=== PATIENT | female | born 1995 | race Caucasian/White ===

== ENCOUNTER 2019-04-20 13:19 | Emergency (ER) | payer OTHER ==
[2019-04-20] MEDS ORDERED: MAG HYDROX/AL HYDROX/SIMETH SUSP 30 ML UDCUP PO ONE (13:55)
[2019-04-20] MEDS ORDERED: METOCLOPRAMIDE HCL ORAL SOLN 10 MG/10 ML UDCUP PO ONE (13:55)
[2019-04-20] MEDS ORDERED: LIDOCAINE 2% VISCOUS SOLN 20 ML UDCUP PO ONE (13:55)
--- NOTE | 2019-04-20 13:57 | ER Document Report ---
ED Medical Screen (RME) - General Chief Complaint: Chest Pain Stated Complaint: CHEST PAIN Time Seen by Provider: 04/20/19 13:44 Notes: Patient is a 24-year-old female presents emergency department with a chief complaint of chest pain. She has had her pain for about the past 2 weeks. Describes it as an intermittent stabbing pain patient states that mother had a stress heart attack when she was 34 years old. Patient is a current everyday smoker and smokes about 3 to 4 cigarettes a day. Today the patient got lightheaded and dizzy and was brought to the emergency department by her coworkers. Patient has a history of GERD and she is supposed to be taking omeprazole, but has not been taking it because she does not like to take medications. Exam: S1, S2. Patient will be given GI cocktail to see if this helps with her chest pain. I have greeted and performed a rapid initial assessment of this patient. A comprehensive ED assessment and evaluation of the patient, analysis of test results and completion of medical decision making process will be conducted by an additional ED providers. - Related Data Allergies/Adverse Reactions: No Known Allergies Allergy (Verified 04/20/19 13:41) Past Medical History - Social History Drug Abuse: Marijuana Physical Exam - Vital signs Vitals: Temp Pulse Resp BP Pulse Ox 98.2 F 86 18 137/79 H 99 04/20/19 13:33 04/20/19 13:33 04/20/19 13:33 04/20/19 13:33 04/20/19 13:33 Course - Vital Signs Vital signs: Temp Pulse Resp BP Pulse Ox 98.2 F 86 18 137/79 H 99 04/20/19 13:33 04/20/19 13:33 04/20/19 13:33 04/20/19 13:33 04/20/19 13:33
[2019-04-20] MEDS ORDERED: ASPIRIN 81 MG TABLET, CHEWABLE PO ONE (14:33)
--- NOTE | 2019-04-20 14:33 | ER Document Report ---
ED Cardiac - General Chief Complaint: Chest Pain Stated Complaint: CHEST PAIN Time Seen by Provider: 04/20/19 13:44 Primary Care Provider: YEIMI ROJAS MD [Primary Care Provider] - Follow up as needed SRIKANTH HELMS MD [ACTIVE STAFF] - Follow up as needed KAT FLYNN MD [ACTIVE STAFF] - Follow up as needed Mode of Arrival: Ambulatory Information source: Patient Notes: Patient presents with a 2-week history of left-sided chest pain off and on for the past 2 weeks. Patient does report a family history in which her mother of a heart attack at the age of 32. Patient states she has felt lightheaded and dizzy today. Patient reports recent cold symptoms although states that she seems to be improving at this time. Patient denies any nausea vomiting or shortness of breath. - HPI Patient complains to provider of: Chest pain Chest pain location: Substernal Quality of pain: Pressure Pain level currently: 1 Cardiac risk factors: Smoker, + Family history. denies: Hypertension, Dyslipidemia, Hx CHF, Hx ME Associated symptoms: Lightheaded. 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 denies: Fever EENT: No symptoms reported Cardiovascular: Chest pain, Dizziness, Lightheaded Respiratory: No symptoms reported. denies: Cough, Short of breath Gastrointestinal: No symptoms reported. denies: Abdominal pain, Nausea, Vomiting Genitourinary: No symptoms reported Female Genitourinary: No symptoms reported Musculoskeletal: No symptoms reported Skin: No symptoms reported Hematologic/Lymphatic: No symptoms reported Neurological/Psychological: No symptoms reported Physical Exam - Vital signs Vitals: Temp Pulse Resp BP Pulse Ox 98.2 F 86 18 137/79 H 99 04/20/19 13:33 04/20/19 13:33 04/20/19 13:33 04/20/19 13:33 04/20/19 13:33 - General General appearance: Appears well, Alert In distress: None - HEENT Head: Normocephalic, Atraumatic Eyes: Normal Conjunctiva: Normal Nasal: Normal Mouth/Lips: Normal Mucous membranes: Normal Pharynx: Normal Neck: Normal, Supple. No: Lymphadenopathy - Respiratory Respiratory status: No respiratory distress Chest status: Nontender Breath sounds: Normal Chest palpation: Normal - Cardiovascular Rhythm: Regular Heart sounds: S1 appreciated, S2 appreciated Murmur: No - Abdominal Inspection: Normal Distension: No distension Tenderness: Nontender - Back Back: Normal, Nontender. No: CVA tenderness - Extremities General upper extremity: Normal inspection, Normal ROM General lower extremity: Normal inspection, Normal ROM - Neurological Neuro grossly intact: Yes Cognition: Normal Orientation: AAOx4 [place] Coma Scale Eye Opening: Spontaneous [place] Coma Scale Verbal: Oriented [place] Coma Scale Motor: Obeys Commands [place] Coma Scale Total: 15 - Psychological Associated symptoms: Normal affect, Normal mood - Skin Skin Temperature: Warm Skin Moisture: Dry Skin Color: Normal Course - Re-evaluation Re-evalutation: 04/20/19 15:23 Presentation of chest pain in an otherwise well appearing patient. Low clinical suspicion for ACS given clinical history, exam, EKG without ST elevations or d epressions, and negative initial troponin. HEART score of 1. PE also seems unlikely given clinical history, absence of tachycardia or dyspnea. Patient is PERC criteria negative. CXR without evidence of pneumothorax or pneumonia. No widened mediastinum. Aortic dissection also seems unlikely given history, symmetric pulses, CXR, and vitals. Chest pain in a patient without evidence of cardiac or other serious etiology on workup today. I discussed with patient that, based on their age, risk factors and emergency department testing today, the likelihood that their symptoms are related to a heart attack is very low. The patient demonstrates decision making capacity and has verbalized an understanding of these risks to me. Based on this, the patient has chosen to follow-up as an outpatient. Usual chest pain return precautions reviewed. The patient states understanding and agreement with this plan. - Vital Signs Vital signs: Temp Pulse Resp BP Pulse Ox 97.8 F 83 20 113/74 97 04/20/19 16:15 04/20/19 16:15 04/20/19 16:15 04/20/19 16:15 04/20/19 16:15 - Laboratory Result Diagrams: 04/20/19 14:16 04/20/19 14:16 Laboratory results interpreted by me: 04/20/19 14:16 Lymph % (Auto) 50.8 H Seg Neutrophils % 40.1 L Labs- Entire Visit 04/20/19 04/20/19 04/20/19 14:16 14:16 14:16 WBC 4.9 RBC 4.58 Hgb 13.5 Hct 39.6 MCV 86 MCH 29.5 MCHC 34.2 RDW 13.7 Plt Count 267 Lymph % (Auto) 50.8 H [place] % (Auto) 6.9 Eos % (Auto) 1.4 Baso % (Auto) 0.8 Absolute Neuts (auto) 2.0 Absolute Lymphs (auto) 2.5 Absolute Monos (auto) 0.3 Absolute Eos (auto) 0.1 Absolute Basos (auto) 0.0 Seg Neutrophils % 40.1 L D-Dimer Sodium 140.8 Potassium 4.4 Chloride 104 Carbon Dioxide 25 Anion Gap 12 BUN 13 Creatinine 0.73 Est GFR ( Amer) > 60 Est GFR (MDRD) Non-Af > 60 Glucose 84 Calcium 9.6 Total Bilirubin 0.4 Direct Bilirubin 0.2 Neonat Total Bilirubin Not Reportable Neonat Direct Bilirubin Not Reportable Neonat Indirect Bili Not Reportable AST 21 ALT 14 Alkaline Phosphatase 67 Creatine Kinase 56 CK-MB (CK-2) 0.36 Troponin I 0.021 Total Protein 8.1 Albumin 4.9 Lipase 77.9 04/20/19 14:16 WBC RBC Hgb Hct MCV MCH MCHC RDW Plt Count Lymph % (Auto) [place] % (Auto) Eos % (Auto) Baso % (Auto) Absolute Neuts (auto) Absolute Lymphs (auto) Absolute Monos (auto) Absolute Eos (auto) Absolute Basos (auto) Seg Neutrophils % D-Dimer < 0.27 Sodium Potassium Chloride Carbon Dioxide Anion Gap BUN Creatinine Est GFR ( Amer) Est GFR (MDRD) Non-Af Glucose Calcium Total Bilirubin Direct Bilirubin Neonat Total Bilirubin Neonat Direct Bilirubin Neonat Indirect Bili AST ALT Alkaline Phosphatase Creatine Kinase CK-MB (CK-2) Troponin I Total Protein Albumin Lipase - Diagnostic Test Radiology reviewed: Reports reviewed - EKG Interpretation by Me EKG shows normal: Sinus rhythm Rate: Normal Rhythm: NSR Additional EKG results interpreted by me: 04/20/19 15:[address] elevation, no T wave inversion, QTC 442 Discharge - Discharge Clinical Impression: Chest pain Qualifiers: Chest pain type: unspecified Qualified Code(s): R07.9 - Chest pain, unspecified Condition: Stable Disposition: HOME, SELF-CARE Instructions: Chest Pain of Unclear Cause ([facility]) Additional Instructions: Return immediately for any new or worsening symptoms Followup with your primary care provider, call tomorrow to make a followup a ppointment Follow up with a anaesthetic technician for recheck, call tomorrow for an appointment You were seen today for chest pain. The exact cause of your pain is unclear. However, based on your cardiac enzyme testing, chest x-ray, and EKG it does not appear that it is from an immediately life-threatening cause at this time. Although your testing here is normal is critical that you follow-up with your primary care physician for continued evaluation of this chest pain and possible stress testing. I recommended you see your physician within the next 24-48 hours to be evaluated for consideration of a stress test. Please return to emergency department immediately if you have worsening of your chest pain, shortness of breath, vomiting, become unable to exert yourself due to pain or difficulty breathing, you pass out, or have any pain that radiates into your arms, jaw, or back. Please also return if you have any additional symptoms that are concerning to you. Forms: Return to Work Referrals: YEIMI ROJAS MD [Primary Care Provider] - Follow up as needed KAT FLYNN MD [ACTIVE STAFF] - Follow up as needed SRIKANTH HELMS MD [ACTIVE STAFF] - Follow up as needed
[2019-04-20 14:36] LABS: ABSOLUTE EOSINOPHILS # (AUTO) 0.1 10^3/uL (0.0-0.6); ABSOLUTE LYMPHOCYTES (AUTO) 2.5 10^3/uL (0.5-4.7); ABSOLUTE MONOCYTES (AUTO) 0.3 10^3/uL (0.1-1.4); BASOPHILS % (AUTO) 0.8 % (0-2); EOSINOPHILS % (AUTO) 1.4 % (0-6); HEMATOCRIT 39.6 % (36.0-47.0); HEMOGLOBIN 13.5 g/dL (12.0-15.5); LYMPHOCYTES % (AUTO) 50.8 % (13-45); MEAN CORPUSCULAR HEMOGLOBIN 29.5 pg (27.0-33.4); MEAN CORPUSCULAR HGB CONC 34.2 g/dL (32.0-36.0); MEAN CORPUSCULAR VOLUME 86 fl (80-97); MONOCYTES % (AUTO) 6.9 % (3-13); PLATELET COUNT 267 10^3/uL (150-450); RED BLOOD COUNT 4.58 10^6/uL (3.72-5.28); RED CELL DISTRIBUTION WIDTH 13.7 % (11.5-14.0); SEGMENTED NEUTROPHILS % (AUTO) 40.1 % (42-78); TOTAL CELLS COUNTED % (AUTO) 100 %; WHITE BLOOD COUNT 4.9 10^3/uL (4.0-10.5)
--- NOTE | 2019-04-20 14:47 | RADIOLOGY REPORT (SQ) ---
EXAM DESCRIPTION: CHEST 2 VIEWS COMPLETED DATE/TIME: 04/20/2019 2:38 pm REASON FOR STUDY: cp COMPARISON: None. EXAM PARAMETERS: NUMBER OF VIEWS: two views TECHNIQUE: Digital Frontal and Lateral radiographic views of the chest acquired. RADIATION DOSE: NA LIMITATIONS: none FINDINGS: LUNGS AND PLEURA: No consolidation, pleural effusion or pneumothorax. MEDIASTINUM AND HILAR STRUCTURES: No mediastinal or hilar contour abnormality. HEART AND VASCULAR STRUCTURES: The cardiac silhouette and pulmonary vasculature are within normal knox its. BONES: No acute findings. HARDWARE: None. OTHER: No other finding. IMPRESSION: No acute cardiopulmonary process. TECHNICAL DOCUMENTATION: JOB ID: [id number] [employer]- All Rights Reserved Reading location - IP/workstation name: [email or web address]
[2019-04-20 15:01] LABS: ALBUMIN 4.9 g/dL (3.5-5.0); ALKALINE PHOSPHATASE 67 U/L (38-126); ANION GAP 12 (5-19); ASPARTATE AMINO TRANSFERASE 21 U/L (14-36); BILIRUBIN,DIRECT 0.2 mg/dL (0.0-0.4); BILIRUBIN,TOTAL 0.4 mg/dL (0.2-1.3); BLOOD UREA NITROGEN 13 mg/dL (7-20); CALCIUM 9.6 mg/dL (8.4-10.2); CARBON DIOXIDE 25 mmol/L (22-30); CHLORIDE 104 mmol/L (98-107); CREATINE KINASE 56 U/L (30-135); GLUCOSE 84 mg/dL (75-110); POTASSIUM 4.4 mmol/L (3.6-5.0); TOTAL PROTEIN 8.1 g/dL (6.3-8.2)
[2019-04-20 15:11] LABS: CREATINE KINASE MB 0.36 ng/mL (<4.55); TROPONIN I 0.021 ng/mL
[2019-04-20 16:17] VITALS: BP 113/74
--- NOTE | 2019-04-20 23:49 | EKG REPORT ---
SEVERITY:- NORMAL ECG - SINUS RHYTHM : Confirmed by: Rose Mary Dan MD 20-Apr-2019 23:48:46
== END 2019-04-20 16:24 | disposition home or self-care (01) ==
LOC: ER 13:19
DX: R07.9 Chest pain, unspecified (principal); R42 Dizziness and giddiness; F17.200 Nicotine dependence, unspecified, uncomplicated
CPT/HCPCS: 93005; 36415; 82553; 82550; 83690; 85025; 80053; 84484; 85379; 71046; 93010; J3490; 99285

== ENCOUNTER 2019-09-14 10:50 | Emergency (ER) | payer OTHER ==
--- NOTE | 2019-09-14 11:32 | ER Document Report ---
ED Medical Screen (RME) - General Chief Complaint: Shortness Of Breath Stated Complaint: SHORTNESS OF BREATH/NAUSEA Time Seen by Provider: 09/14/19 11:29 Primary Care Provider: YEIMI ROJAS MD [Primary Care Provider] - Follow up as needed Mode of Arrival: Ambulatory Information source: Patient Notes: 24-year-old female presented to ED for complaint of shortness of breath diagnosis of costochondritis with back pain and chest pain she states she has had the pain and discomfort for about a month. She has been diagnosed by her primary doctor and is a put her on multiple different medications. She states that her doctor sent her to the emergency room today due to the pain. She is alert oriented respirations regular nonlabored at this time. O2 sat is 98% temp is 98.3. I have greeted and performed a rapid initial assessment of this patient. A comprehensive ED assessment and evaluation of the patient, analysis of test results and completion of medical decision making process will be conducted by an additional ED providers. - Related Data Allergies/Adverse Reactions: No Known Allergies Allergy (Verified 09/14/19 11:29) Past Medical History GI Medical History: Reports: Hx Gastroesophageal Reflux Disease Psychiatric Medical History: Reports: Hx Anxiety Past Surgical History: Reports: Hx Orthopedic Surgery, Hx Tonsillectomy Physical Exam - Vital signs Vitals: Temp Pulse Resp BP Pulse Ox 98.3 F 87 16 116/69 98 09/14/19 11:19 09/14/19 11:19 09/14/19 11:19 09/14/19 11:19 09/14/19 11:19 Course - Vital Signs Vital signs: Temp Pulse Resp BP Pulse Ox 98.3 F 87 16 116/69 98 09/14/19 11:19 09/14/19 11:19 09/14/19 11:19 09/14/19 11:19 09/14/19 11:19 Doctor's Discharge - Discharge Referrals: YEIMI ROJAS MD [Primary Care Provider] - Follow up as needed
--- NOTE | 2019-09-14 11:53 | RADIOLOGY REPORT (SQ) ---
EXAM DESCRIPTION: CHEST 2 VIEWS COMPLETED DATE/TIME: 09/14/2019 11:44 am REASON FOR STUDY: Chest and back pain COMPARISON: 04/20/2019 two-view chest EXAM PARAMETERS: NUMBER OF VIEWS: two views TECHNIQUE: Digital Frontal and Lateral radiographic views of the chest acquired. RADIATION DOSE: NA LIMITATIONS: none FINDINGS: LUNGS AND PLEURA: No opacities, masses or pneumothorax. No pleural effusion. MEDIASTINUM AND HILAR STRUCTURES: No masses or contour abnormalities. HEART AND VASCULAR STRUCTURES: Heart normal size. No evidence for failure. BONES: No acute findings. HARDWARE: None in the chest. OTHER: No other significant finding. IMPRESSION: NO ACUTE RADIOGRAPHIC FINDING IN THE CHEST. TECHNICAL DOCUMENTATION: JOB ID: [id number] [employer]- All Rights Reserved Reading location - IP/workstation name: [email or web address]
[2019-09-14 12:05] LABS: ABSOLUTE EOSINOPHILS # (AUTO) 0.1 10^3/uL (0.0-0.6); ABSOLUTE LYMPHOCYTES (AUTO) 2.3 10^3/uL (0.5-4.7); ABSOLUTE MONOCYTES (AUTO) 0.3 10^3/uL (0.1-1.4); ABSOLUTE NEUT (AUTO) 1.9 10^3/uL (1.7-8.2); BASOPHILS % (AUTO) 0.6 % (0-2); EOSINOPHILS % (AUTO) 1.4 % (0-6); HEMATOCRIT 39.6 % (36.0-47.0); HEMOGLOBIN 13.5 g/dL (12.0-15.5); LYMPHOCYTES % (AUTO) 50.7 % (13-45); MEAN CORPUSCULAR HEMOGLOBIN 29.5 pg (27.0-33.4); MEAN CORPUSCULAR HGB CONC 34.2 g/dL (32.0-36.0); MEAN CORPUSCULAR VOLUME 86 fl (80-97); MONOCYTES % (AUTO) 6.3 % (3-13); PLATELET COUNT 266 10^3/uL (150-450); RED BLOOD COUNT 4.59 10^6/uL (3.72-5.28); RED CELL DISTRIBUTION WIDTH 13.6 % (11.5-14.0); TOTAL CELLS COUNTED % (AUTO) 100 %; WHITE BLOOD COUNT 4.5 10^3/uL (4.0-10.5)
[2019-09-14 12:33] LABS: ALBUMIN 4.5 g/dL (3.5-5.0); ALKALINE PHOSPHATASE 59 U/L (38-126); ANION GAP 7 (5-19); ASPARTATE AMINO TRANSFERASE 23 U/L (14-36); BILIRUBIN,TOTAL 0.3 mg/dL (0.2-1.3); BLOOD UREA NITROGEN 11 mg/dL (7-20); CALCIUM 9.3 mg/dL (8.4-10.2); CARBON DIOXIDE 27 mmol/L (22-30); CHLORIDE 103 mmol/L (98-107); GLUCOSE 93 mg/dL (75-110); POTASSIUM 4.5 mmol/L (3.6-5.0); TOTAL PROTEIN 7.5 g/dL (6.3-8.2)
--- NOTE | 2019-09-14 15:10 | ER Document Report ---
ED General - General Chief Complaint: Shortness Of Breath Stated Complaint: SHORTNESS OF BREATH/NAUSEA Time Seen by Provider: 09/14/19 11:29 Primary Care Provider: YEIMI ROJAS MD [Primary Care Provider] - Follow up in 1 week Mode of Arrival: Ambulatory Information source: Patient Notes: 24-year-old female presents emergency department with shortness of breath for the past month. Reports she has been to her primary care provider who is treated her with steroids inhaler Motrin. Reports she was diagnosed with costochondritis. She reports her primary care provider sent her here for further evaluation. Patient denies history of PE or denies recent trip. Denies family history of PE. Patient reports she smokes but has cut back in the past month. She denies fever vomiting diarrhea. She reports she is eating drinking voiding as normal without any complaints. 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[employer] Lives 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 Family History: CAD Patient has suicidal ideation: No Patient has homicidal ideation: No GI Medical History: Reports: Hx Gastroesophageal Reflux Disease Psychiatric Medical History: Reports: Hx Anxiety Past Surgical History: Reports: Hx Orthopedic Surgery, Hx Tonsillectomy Review of Systems - Review of Systems Notes: Review HPI for review of systems., All other systems negative Physical Exam - Vital signs Vitals: Temp Pulse Resp BP Pulse Ox 98.3 F 87 16 116/69 98 09/14/19 11:19 09/14/19 11:19 09/14/19 11:19 09/14/19 11:19 09/14/19 11:19 - Notes Notes: PHYSICAL EXAMINATION: GENERAL: Well-appearing and in no acute distress HEAD: Atraumatic, normocephalic. EYES: Pupils equal round and reactive to light, extraocular movements intact, sclera anicteric, conjunctiva are normal. ENT: nares patent, oropharynx clear without exudates. Moist mucous membranes. NECK: Normal range of motion, supple without lymphadenopathy LUNGS: CTAB and equal. No wheezes rales or rhonchi. CHEST WALL STERNUM AREA TTP HEART: Regular rate and rhythm without murmurs ABDOMEN: Soft, no tenderness. No guarding, no rebound BACK: Denies pain EXTREMITIES: Normal range of motion, NEUROLOGICAL: Cranial nerves grossly intact. Normal sensory/motor exams. PSYCH: Normal mood, normal affect. SKIN: Warm, Dry, normal turgor, no rashes or lesions noted Course - Re-evaluation Re-evalutation: 09/14/19 15:09 24-year-old female presents with history of costochondritis for the past month. She has been treated with steroids Motrin and inhalers still not feeling well. Patient is chest wall is very tender to palpate. No erythema no swelling. Patient reports she is not sure why her symptoms started. Reports she does not work out. No accident or trauma. She reports she has not been coughing. She reports they speculated it is because she sleeps on her chest. Patient reports she feels short of breath even sitting there. Chest X-Ray 09/14/19 11:32 IMPRESSION: NO ACUTE RADIOGRAPHIC FINDING IN THE CHEST. Laboratory 09/14/19 09/14/19 09/14/19 11:55 11:55 11:55 WBC 4.5 RBC 4.59 Hgb 13.5 Hct 39.6 MCV 86 MCH 29.5 MCHC 34.2 RDW 13.6 Plt Count 266 Lymph % (Auto) 50.7 H [place] % (Auto) 6.3 Eos % (Auto) 1.4 Baso % (Auto) 0.6 Absolute Neuts (auto) 1.9 Absolute Lymphs (auto) 2.3 Absolute Monos (auto) 0.3 Absolute Eos (auto) 0.1 Absolute Basos (auto) 0.0 Seg Neutrophils % 41.0 L Sodium 136.8 L Potassium 4.5 Chloride 103 Carbon Dioxide 27 Anion Gap 7 BUN 11 Creatinine 0.65 Est GFR ( Amer) > 60 Est GFR (MDRD) Non-Af > 60 Glucose 93 Calcium 9.3 Total Bilirubin 0.3 Direct Bilirubin 0.0 Neonat Total Bilirubin Not Reportable Neonat Direct Bilirubin Not Reportable Neonat Indirect Bili Not Reportable AST 23 ALT 17 Alkaline Phosphatase 59 Total Protein 7.5 Albumin 4.5 Serum HCG, Qual NEGATIVE 09/14/19 15:49 Patient was ambulated around the emergency department. O2 sat never dropped below 96%. Patient reports she did feel winded walking. She was instructed on the importance of follow back up with her primary care provider for recheck and referral to lithographing machine operator as indicated. She verbalized understanding to all instructions. - Vital Signs Vital signs: Temp Pulse Resp BP Pulse Ox 98.3 F 87 16 116/69 98 09/14/19 11:19 09/14/19 11:19 09/14/19 11:19 09/14/19 11:19 09/14/19 11:19 - Laboratory Result Diagrams: 09/14/19 11:55 09/14/19 11:55 Laboratory results interpreted by me: 09/14/19 09/14/19 11:55 11:55 Lymph % (Auto) 50.7 H Seg Neutrophils % 41.0 L Sodium 136.8 L - Diagnostic Test Radiology reviewed: Image reviewed, Reports reviewed - EKG Interpretation by Me Rate: Normal Rhythm: NSR Additional EKG results interpreted by me: 09/14/19 15:[address] elevation no T wave inversion Discharge - Discharge Clinical Impression: Chest wall pain, Costochondritis Condition: Stable Disposition: HOME, SELF-CARE Instructions: Chest Wall Pain ([facility]), Costochondritis ([facility]) Additional Instructions: *You have been evaluated for chest wall pain, costochondritis *Your chest x-ray was negative for pneumonia. Your labs were unremarkable. *Monitor your temperature, take Tylenol as indicated *Follow up with a primary care provider within 1 week for recheck and referral to pulmonology as indicated *Return to ED for worsening shortness of breath, difficulty breathing, concerns Forms: Return to Work Referrals: YEIMI ROJAS MD [Primary Care Provider] - Follow up in 1 week
[2019-09-14 16:05] VITALS: BP 110/79
--- NOTE | 2019-09-14 21:37 | EKG REPORT ---
SEVERITY:- NORMAL ECG - SINUS RHYTHM : Confirmed by: Rose Mary Dan MD 14-Sep-2019 21:36:03
== END 2019-09-14 16:17 | disposition home or self-care (01) ==
LOC: ER 10:50
DX: M94.0 Chondrocostal junction syndrome [Tietze] (principal); R07.89 Other chest pain; R06.02 Shortness of breath; R11.0 Nausea; K21.9 Gastro-esophageal reflux disease without esophagitis; F17.200 Nicotine dependence, unspecified, uncomplicated
CPT/HCPCS: 36415; 71046; 80053; 84703; 85025; 93005; 93010; 99285

== ENCOUNTER 2019-12-11 23:06 | Emergency (ER) | payer OTHER ==
[2019-12-11] MEDS ORDERED: PREDNISONE 20 MG TABLET PO ONE (23:49)
--- NOTE | 2019-12-11 23:49 | ER Document Report ---
ED General - General Chief Complaint: Shortness Of Breath Stated Complaint: DIFFICULTY BREATHING Primary Care Provider: RONALD MARTIN MD [Primary Care Provider] - Follow up as needed Notes: Patient is a 24-year-old female with a history of asthma who presents to the emergency department with a chief complaint of course of breath that began suddenly. The patient reports that she was drinking some mixed drinks with friends "having a good time" when she saw that it was time for her nightly dose of her asthma medication, albuterol. She used the inhaler and then suddenly felt short of breath. She denies any chest pain. Denies any fever or cough. No recent travel or known sick contacts. She denies any lower extremity pain or swelling, history of DVT or PE, recent surgery, recent travel, recent mobilization, hormone replacement therapy/ control, smoking, history of cancer. - Related Data Allergies/Adverse Reactions: No Known Allergies Allergy (Verified 09/14/19 11:29) Home Medications: albuterol, tramadol Past Medical History - Social History Smoking Status: Current Every Day Smoker Frequency of alcohol use: Occasional Drug Abuse: None Family History: CAD Patient has homicidal ideation: No Pulmonary Medical History: Reports: Hx Asthma GI Medical History: Reports: Hx Gastroesophageal Reflux Disease Psychiatric Medical History: Reports: Hx Anxiety Past Surgical History: Reports: Hx Orthopedic Surgery, Hx Tonsillectomy Review of Systems - Review of Systems Respiratory: Short of breath -: Yes All other systems reviewed and negative Physical Exam - Vital signs Vitals: Temp Pulse Resp BP Pulse Ox 97.6 F 106 H 34 H 144/93 H 100 12/11/19 23:24 12/11/19 23:24 12/11/19 23:24 12/11/19 23:24 12/11/19 23:24 - General General appearance: Alert, Anxious In distress: None - HEENT Head: Normocephalic, Atraumatic Eyes: Normal Conjunctiva: Normal Extraocular movements intact: Yes Pupils: PERRL Ears: Normal External canal: Normal Tympanic membrane: Normal Mucous membranes: Normal Pharynx: Normal Neck: Supple - Respiratory Respiratory status: No respiratory distress Chest status: Nontender Breath sounds: Normal Chest palpation: Normal - Cardiovascular Rhythm: Regular Heart sounds: Normal auscultation Murmur: No - Extremities General upper extremity: Normal inspection, Nontender, Normal color, Normal ROM, Normal temperature General lower extremity: Normal inspection, Nontender, Normal color, Normal ROM, Normal temperature, Normal weight bearing. No: Kevyn's sign - Neurological Neuro grossly intact: Yes Cognition: Normal Orientation: AAOx4 - Psychological Associated symptoms: Anxious - Skin Skin Temperature: Warm Skin Moisture: Dry Skin Color: Normal Course - Re-evaluation Re-evalutation: 12/12/19 00:40 Reevaluation at this time, patient is resting comfortably in the room. She was initially tachycardic and tachypneic upon arrival however upon reevaluation in the room when she was received into an ER room her heart rate had normalized as had her respiratory rate. Reevaluation prior to discharge shows the patient to be resting comfortably without any difficulty breathing or respiratory distress. She is speaking in full sentences. Her work-up is largely unremarkable. Chest x-ray was negative for any acute process per radiologist. Her d-dimer was negative coupled with a negative PERC screen. She has no risk factors for DVT or PE. She does admit to using nicotine products around the usage of her inhaler and suspect this as the cause of her symptoms. Counseled her to avoid nicotine products especially around the usage of her inhaler. She will be discharged for outpatient follow-up. I advised that she return here or any ER immediately with any new, persistent or worsening symptoms. She verbalized understood and agreed. - Vital Signs Vital signs: Temp Pulse Resp BP Pulse Ox 97.7 F 93 24 H 123/76 99 12/11/19 23:39 12/11/19 23:39 12/11/19 23:39 12/11/19 23:39 12/11/19 23:39 - Laboratory Result Diagrams: 12/11/19 23:41 12/11/19 23:41 Laboratory results interpreted by me: 12/11/19 12/11/19 23:41 23:41 Lymph % (Auto) 58.2 H Seg Neutrophils % 31.6 L Carbon Dioxide 21 L Albumin 5.2 H Discharge - Discharge Clinical Impression: Tachypnea, Drug interaction Condition: Stable Disposition: HOME, SELF-CARE Instructions: Dyspnea, Nonspecific ([facility]) Additional Instructions: Follow-up with your regular doctor in 2 to 3 days for reevaluation. Return here or any ER immediately with any new, persistent or worsening symptoms. Referrals: RONALD MARTIN MD [Primary Care Provider] - Follow up as needed
[2019-12-12 00:06] LABS: ABSOLUTE EOSINOPHILS # (AUTO) 0.2 10^3/uL (0.0-0.6); ABSOLUTE LYMPHOCYTES (AUTO) 4.2 10^3/uL (0.5-4.7); ABSOLUTE MONOCYTES (AUTO) 0.5 10^3/uL (0.1-1.4); ABSOLUTE NEUT (AUTO) 2.3 10^3/uL (1.7-8.2); BASOPHILS % (AUTO) 0.6 % (0-2); EOSINOPHILS % (AUTO) 2.6 % (0-6); HEMATOCRIT 41.3 % (36.0-47.0); HEMOGLOBIN 14.5 g/dL (12.0-15.5); LYMPHOCYTES % (AUTO) 58.2 % (13-45); MEAN CORPUSCULAR HEMOGLOBIN 30.4 pg (27.0-33.4); MEAN CORPUSCULAR VOLUME 87 fl (80-97); PLATELET COUNT 261 10^3/uL (150-450); RED BLOOD COUNT 4.76 10^6/uL (3.72-5.28); RED CELL DISTRIBUTION WIDTH 12.8 % (11.5-14.0); SEGMENTED NEUTROPHILS % (AUTO) 31.6 % (42-78); TOTAL CELLS COUNTED % (AUTO) 100 %; WHITE BLOOD COUNT 7.3 10^3/uL (4.0-10.5)
[2019-12-12 00:13] LABS: ALBUMIN 5.2 g/dL (3.5-5.0); ALKALINE PHOSPHATASE 83 U/L (38-126); ANION GAP 13 (5-19); ASPARTATE AMINO TRANSFERASE 27 U/L (14-36); BILIRUBIN,TOTAL 0.3 mg/dL (0.2-1.3); BLOOD UREA NITROGEN 7 mg/dL (7-20); CALCIUM 10.2 mg/dL (8.4-10.2); CARBON DIOXIDE 21 mmol/L (22-30); CHLORIDE 107 mmol/L (98-107); GLUCOSE 94 mg/dL (75-110); POTASSIUM 3.8 mmol/L (3.6-5.0); TOTAL PROTEIN 8.1 g/dL (6.3-8.2)
--- NOTE | 2019-12-12 00:20 | RADIOLOGY REPORT (SQ) ---
AP Portable chest: 12/11/2019 11:18 PM CDT History: 24-year old patient with dyspnea. Comparison: Chest radiograph performed 09/14/2019. Findings: The cardiomediastinal silhouette is normal in size. No pneumothorax is seen. No acute airspace opacities are seen. No discrete pleural effusion is apparent. Impression: No acute airspace opacities are seen.
[2019-12-12 01:00] VITALS: BP 108/75
== END 2019-12-12 01:00 | disposition home or self-care (01) ==
LOC: ER 23:06
DX: T48.6X5A Adverse effect of antiasthmatics, initial encounter (principal); R06.82 Tachypnea, not elsewhere classified; R00.0 Tachycardia, unspecified; Y92.9 Unspecified place or not applicable; J45.909 Unspecified asthma, uncomplicated; F17.200 Nicotine dependence, unspecified, uncomplicated; Z79.899 Other long term (current) drug therapy
CPT/HCPCS: 99285; 36415; 84703; 85025; 80053; 85379; 71045; J7512

== ENCOUNTER → 2019-12-21 | Outpatient (CLI) | payer OTHER ==
--- NOTE | 2019-12-21 10:39 | RADIOLOGY REPORT (SQ) ---
EXAM DESCRIPTION: COOKIE SWALLOW IMAGES COMPLETED DATE/TIME: 12/21/2019 9:42 am REASON FOR STUDY: DYSPHAGIA R13.10 DYSPHAGIA, UNSPECIFIED bolus sensation, coughing with meals COMPARISON: None. TECHNIQUE: Videofluoroscopic swallowing examination was performed in conjunction with speech patholo gy. Videofluoroscopic imaging was obtained and reviewed and these are the findings: RADIATION DOSE: 1 minutes 17 seconds. 1 images saved to PACS. LIMITATIONS: None FINDINGS: The patient was brought into the fluoro room and placed upright on a modified barium swall ow chair. The patient was then given multiple consistencies mixed with barium to swallow under live fluoroscopic video guidance. According to the Speech Pathologist there was no penetration or aspirat ion. Mild cricopharyngeal hypertrophy. IMPRESSION: NO EVIDENCE OF PENETRATION OR ASPIRATION. PLEASE SEE SPEECH PATHOLOGIST REPORT FOR OTHER FINDINGS AND RECOMMENDATIONS. COMMENT: Quality ID [id number]: Final reports for procedures using fluoroscopy that document radiation exp osure indices, or exposure time and number of fluorographic images (if radiation exposure indices are not available) TECHNICAL DOCUMENTATION: JOB ID: [id number] 2010 [employer]- All Rights Reserved Reading location - IP/workstation name: [email or web address] [id number]
--- NOTE | 2019-12-21 14:12 | ST Modified Barium Swallow ---
Recommendation - Recommendations Recommendations: Recommend follow up with GI. Possible signs of reduced movement of material in upper esophageal region. Medical Diagnoses - Medical Diagnoses Medical Diagnosis Description & ICD-10 Code(s): dysphagia R13.10 Other Medical Diagnoses/Co-Morbidities: per patient report: reflux, asthma ST Modified Barium Swallow - General Date: 12/21/19 Referring Physician: Dr. Miles Risks/Precautions: None Date of Onset: 11/28/14 - approximate onset Reason for Referral: difficulty swallowing - History -: Medical - Patient arrived independently and acted as her own historian. Patient reports having difficulty swallowing since 2014. She states that she feels things "get stuck" at times, mostly with solids. She did have a prior EGD several years ago which showed inflamed stomach. No current diet changes reported or recent pneumonias. Patient does have underlying asthma and reflux. Medications: per patient report: omeprazole, inhaler Allergies: none reported - Functional Status Prior Functional Status: INDEPENDENT: feeding - independent Current Functional Limitations: feeding - globus - Subjective Patient/caregiver goal(s): safe swallow Cognitive-Linguistic Function: WNL Speech Intelligibility: WNL Current Nutritional Means: PO Current PO diet: Regular Current symptoms: c/o Globus sensation Pain: Patient reports, 0/5 - Objective Assessment: Upright, Left Lateral - Food Trials Used Food trials used: Thin liquids, Pureed, Regular The patient: Was Able to Self Feed - Oral-Motor Skills Dentition: Full Velo-pharyngeal function: Unremarkable Laryngeal Function: clear voicing - Assessment Oral prep: Normal Labial closure: Adequate Leakage: None Mastication: Adequate Lingual Movement: Normal Oral stage: Normal for this Procedure - Pharyngeal Stage Initiation of Pharyngeal Stage Reflex: Normal Decreased laryngeal elevation: No Reduced Velopharyngeal Closure: no Reduced pressure generation: No reduced tongue-based retraction: No Pre-swallow pooling in valleculae: None Pre-Swallow pooling in pyriforms: None Reduced Thyro-Hyoid approximation: No Reduced epiglottic excursion: No Reduced pharyngeal peristalsis/contraction: No Post-swallow residulas vallecular: Mild Post-Swallow residuals in pyriforms: None - Esophageal Stage Esophageal Stage: signs of reduced movement of material through upper esophagus. Signs of retrograde movement of material near upper esophageal sphincter. - Fall Risk Assessment Medications/Conditions that increase fall risks include: Antidepressants, sedatives, anti-arrhythmic, diuretic, benzodiazipenes, neuroleptics. BP regulation problems, cardiac problems, balance or gait deficits, neurological problems. Is patient considered at risk for falls: no Fall Risk Actions Taken: No action needed - Behavioral Observations During evaluation process patient: was cooperative, able to answer questions, pr ovided medical history - Treatment / Educational Needs: Treatment/Education Needs: Treatment consisted of patient education on the role of the Speech Pathologist. Patient's plan of care and golas were communicated as well as scheduling and attendance policies. Recommendations for initial home program were shared. Patient demonstrated understanding and verbalized agreement. - Impression/Summary Laryngeal Penetration: No Tracheal Aspiration: no Risk of Aspiration: Minimal Evaluation and Findings: Normal oral and pharyngeal phase swallowing skills. Some signs of possible esophageal deficits, to include possible reduced UES opening. - Recommendations Solid diet recommendations: Regular Liquid Diet Modification: Thin Pt/Family education and followup with MD: Yes Dysphagia therapy with CLINICAL STUDY MANAGER: no Reflux Precautions: Taught to Patient Information, Precautions and Recommendations: Patient (Written), Patient (Verbal) - Time Total Time: 30 - Plan of Care Strategies to optimize patient understanding include:: ongoing assessment of educational needs, implementation of educational strategies, and re-education. - - -: Thank you for the opportunity to work with this patient and his/her family. Should you have any questions about this patient's plan or progress, I can be reached at [phone].
== END ==
LOC: RAD 08:25
PROVIDERS: ATTEND Internal Medicine Pulmonary Disease
DX: R13.10 Dysphagia, unspecified (principal)
CPT/HCPCS: 74230

== ENCOUNTER 2020-04-25 08:00 | Day surgery (SDC) | payer OTHER ==
[~2020-04-25 08:00] MED LIST: PROPOFOL INJ 200 MG/20 ML VIAL IV ONE
--- NOTE | 2020-04-25 09:35 | Operative Report ---
Operative Report DATE OF SURGERY: 04/25/20 Operative Report: The risk, benefits and alternatives of the procedure including the risks of bleeding, perforation requiring surgery have been explained to the patient in detail and informed consent has been obtained. Patient is placed in a left, lateral decubital position. Timeout was called. Propofol medication is administered. Rectal examination is done which did not reveal any masses, tears or fissures. An Olympus videoscope was introduced into the patient's rectum. Scope was then carefully advanced all the way to the cecum. Prep was good. Intubation of the terminal ileum was done. Scope was then sequentially pulled back via the various segments of the colon including the ascending colon, hepatic flexure, transverse colon, splenic flexure, descending colon finally into the rectosigmoid portions of the colon. Retroflexion maneuver is performed. The risks benefits and alternatives of the procedure explained to the patient in detail and informed consent is obtained.A GIF Olympus video scope was inserted into the patient's mouth and hypopharynx, the esophagus is identified intubated and insufflated ,the scope was then advanced through the esophagus stomach and duodenum, retroflexion maneuver is done, the esophagus stomach and first and second portions of the duodenum examined PREOPERATIVE DIAGNOSIS: Change of bowel habits. Dysphagia POSTOPERATIVE DIAGNOSIS: Distal esophagitis status post biopsy. Gastritis status post biopsy. Terminal ileitis status post biopsy OPERATION: Colonoscopy with biopsy. EGD with biopsy SURGEON: MORELIA ELIZABETH ANESTHESIA: LMAC TISSUE REMOVED OR ALTERED: As noted above. COMPLICATIONS: None. ESTIMATED BLOOD LOSS: None. INTRAOPERATIVE FINDINGS: As noted above. PROCEDURE: Patient tolerated procedure well. No immediate postprocedure complications are noted. Patient is discharged in good condition. Discharge date 04/25/2020. Discharge diet: Regular. Discharge activity: Regular. 2 to 3-week follow-up to discuss findings. Patient is instructed call the office or proceed to the emergency room should there be any further problems or questions. Wait on the pathology.
[2020-04-25] MEDS ORDERED: LIDOCAINE 2% INJ-PF (100 MG/5 ML) SYRINGE ONE (11:22)
[2020-04-25 13:28] VITALS: BP 113/84
== END 2020-04-25 10:55 | disposition home or self-care (01) ==
LOC: END 08:00
PROVIDERS: ATTEND Internal Medicine Gastroenterology
DX: K21.00 Gastro-esophageal reflux disease with esophagitis, without bleeding (principal); K29.50 Unspecified chronic gastritis without bleeding; K50.00 Crohn's disease of small intestine without complications; F17.200 Nicotine dependence, unspecified, uncomplicated; Z20.828 Contact with and (suspected) exposure to other viral communicable diseases; Z79.899 Other long term (current) drug therapy
CPT/HCPCS: 43239; 45380; 87635; 88305 ×2; J2001; J2704; C9803; 813